=== PATIENT | female | born 1955 | race Caucasian/White ===

== ENCOUNTER 2023-07-14 07:07 | Inpatient (IN) | payer MEDICARE, MEDICAID ==
[~2023-07-14] VITALS: Ht 162.6 cm; Wt 102.0 kg
--- NOTE | 2023-07-14 07:29 | NUR ---
2 year remission from colon cancer, uti last month but never took medication,self medicating with cranberry juice.
--- NOTE | 2023-07-14 08:57 | NUR ---
This RN attempted PIV start on patient, patient moving multiple times after IV was placed and moved arm after this RN re-directed multiple times.
[2023-07-14 09:00] LABS: EOSINOPHILS % (AUTO) 0 % (0-6); HEMATOCRIT 39.2 % (35.0-45.0); LYMPHOCYTES # (AUTO) 0.2 X10'3 (1.1-4.8); RED CELL DISTRIBUTION WIDTH 13.9 % (11.5-14.5)
[2023-07-14 09:02] LABS: BASOPHILS % (AUTO) 0.1 % (0-1); HEMOGLOBIN 12.9 g/dl (12.0-16.0); LYMPHOCYTES % (AUTO) 2.7 % (21-51); MEAN CORPUSCULAR HEMOGLOBIN 29.6 PG (27.0-31.0); MEAN CORPUSCULAR VOLUME 89.7 FL (78-98); MEAN PLATELET VOLUME 8.3 FL (7.4-10.4); MONOCYTES # (AUTO) 0.4 X10'3 (0-0.9); MONOCYTES % (AUTO) 6.8 % (2-12); NEUTROPHILS # (AUTO) 5.8 X10'3 (1.8-7.7); NEUTROPHILS % (AUTO) 90.4 % (42-75); PLATELET COUNT 128 X10'3 (140-440); RED BLOOD COUNT 4.37 X10'6 (4.20-5.60); WHITE BLOOD COUNT 6.4 X10'3 (4.5-11.0)
[2023-07-14 09:15] LABS: ALANINE AMINOTRANSFERASE 27 U/L (12-78); ALBUMIN 3.2 G/DL (3.4-5.0); ALBUMIN/GLOBULIN RATIO 0.8 (1.1-1.5); ALKALINE PHOSPHATASE 70 IU/L (46-116); ANION GAP 11 (8-16); ASPARTATE AMINO TRANSFERASE 39 U/L (10-37); BILIRUBIN,TOTAL 0.9 MG/DL (0.1-1.0); BLOOD UREA NITROGEN 18 MG/DL (7-18); BUN/CREATININE RATIO 12.5 (10.0-20.0); CALCIUM 8.9 MG/DL (8.5-10.1); CHLORIDE 97 MMOL/L (99-107); CREATININE 1.44 MG/DL (0.40-0.90); GLUCOSE 130 MG/DL (70-104); SODIUM 131 MMOL/L (135-145); TOTAL CARBON DIOXIDE 22.8 MMOL/L (24-32); TOTAL PROTEIN 7.1 G/DL (6.4-8.2); eCRCL 33 ML/MIN; eGFR 36 ML/MIN
--- NOTE | 2023-07-14 09:17 | NUR ---
critical lab potassium 3.0 Dr. Moore notified
[2023-07-14] MEDS ORDERED: potassium Cl 20 mEq SR tablet PO STA (09:21)
[2023-07-14] MEDS ORDERED: normal saline 1000ML IV soln IVB ONE ×2 (09:35→09:45)
[2023-07-14] MEDS ORDERED: piperacillin/tazo 3.375gm/50ml 50 ML IV ONE (09:35)
[2023-07-14] MEDS ORDERED: acetaminophen 1,000mg/100ml IV 100 ML IV STA (09:41)
[2023-07-14 09:42] LABS: TOTAL CELLS COUNTED 100
[2023-07-14 09:43] LABS: PLATELET ESTIMATE DECREASED
[2023-07-14] MEDS ORDERED: vancomycin 1,750 MG in NS 350ml IV soln IV ONE (10:00)
[2023-07-14 10:16] LABS: BILIRUBIN,URINE NEGATIVE (Neg); CLARITY,URINE CLOUDY (Clear); COLOR,URINE YELLOW (Yellow); GLUCOSE, URINE NEGATIVE (Neg); KETONES,URINE NEGATIVE (Neg); LEUKOCYTE ESTERASE ,URINE SMALL (Neg); NITRITES, URINE NEGATIVE (Neg); OCCULT BLOOD,URINE LARGE (Neg); PROTEIN,URINE >=300 mg/dl (Neg); UROBILINOGEN,URINE 0.2 E.U/dL (0.2-1.0)
[2023-07-14] MEDS ORDERED: magnesium 2GM in 50ml NS 50 ML IV ONE (10:20)
[2023-07-14] MEDS ORDERED: potassium Cl 40MEQ/1/2NS 520ml 520 ML IV ONE (10:20)
[2023-07-14 10:23] LABS: UA COLLECTION TYPE STRAIGHT CATH
[2023-07-14 10:24] LABS: RBC,URINE 50-100 /HPF (0-2); WBC,URINE TNTC /HPF (0-4)
[2023-07-14 10:25] LABS: BACTERIA,URINE 4+ /HPF (Neg); MUCUS STRANDS FEW /LPF (Neg); SQUAMOUS EPITHELIAL CELL,UR FEW /LPF (FEW)
[2023-07-14 10:54] LABS: MAGNESIUM 1.5 MG/DL (1.5-2.4)
[2023-07-14] MEDS ORDERED: magnesium 2GM in 50ml NS 50 ML IV PRN (12:15)
[2023-07-14] MEDS ORDERED: morphine 2 MG/ML inj. syringe IV PRN ×2 (12:15)
[2023-07-14] MEDS ORDERED: potassium Cl 20 mEq SR tablet PO PRN ×2 (12:15)
[2023-07-14] MEDS ORDERED: magnesium 4gm in 100ml NS 100 ML IV PRN (12:15)
[2023-07-14] MEDS ORDERED: potassium Cl 40MEQ/1/2NS 520ml 520 ML IV PRN (12:15)
[2023-07-14] MEDS ORDERED: acetaminophen 325mg tablet PO PRN (12:15)
[2023-07-14] MEDS ORDERED: HYDROcodone/acetaminophen 5mg/325mg tablet PO PRN (12:15)
[2023-07-14] MEDS ORDERED: magnesium Cl slow-release 64mg tablet PO PRN (12:15)
[2023-07-14] MEDS: normal saline 1000ml 1,000 ML IV SCH ×2 (12:40→22:15)
[2023-07-14] MEDS ORDERED: IBUP-1985 PO (13:10)
[2023-07-14] MEDS ORDERED: LISI40TA13 PO (13:10)
[2023-07-14] MEDS ORDERED: OMEP20CA16 PO (13:10)
[2023-07-14] MEDS ORDERED: LEVO25TA7 PO (13:11)
[2023-07-14] MEDS ORDERED: DULO60CA65 PO (13:11)
[2023-07-14] MEDS ORDERED: METO25TA6 PO (13:11)
[2023-07-14] MEDS ORDERED: ATOR20TA66 PO (13:12)
[2023-07-14] MEDS ORDERED: GABA600T13 PO (13:12)
[2023-07-14] MEDS: piperacillin/tazo 3.375gm/50ml 50 ML IV SCH (16:00)
[2023-07-14] MEDS ORDERED: lisinopril 10 MG tablet PO ONE (16:55)
[2023-07-14 17:42] VITALS: BP 136/90; PULSE 122; RESP 22; TEMP 99.3; O2SAT 97
--- NOTE | 2023-07-14 17:48 | NUR ---
Received patient to room 3008 via gurney accompanied by x1 staff. Patient one belongings bag placed in closet. Patient A&O in no apparent acute distress. Patient does c/o being weak. Received from report from Ed PUENTES patient was found sitting on ground in ER room "with poop all over and she didn't hit her head or anything." No apparent injuries noted on skin assessment. Patient oriented to room and call light. Call light placed within patient's reach. Bed low and locked, non skid socks on.
[2023-07-14 17:51] VITALS: RESP 22; O2SAT 97
[2023-07-14 18:00] VITALS: BP 113/61; PULSE 102; RESP 16; TEMP 99.6; O2SAT 97
--- NOTE | 2023-07-14 18:00 | NUR ---
Patient in room PCU 3008. I have received report from Beronica PUENTES and had the opportunity to ask questions and assume patient care.
--- NOTE | 2023-07-14 18:14 | NUR ---
Problems reprioritized. Patient report given, questions answered & plan of care reviewed with DHAVAL Finley.
[2023-07-14] MEDS ORDERED: metoprolol tartrate 25mg tablet PO ONE (18:20)
--- NOTE | 2023-07-14 18:29 | NUR ---
Problems reprioritized. Patient report given, questions answered & plan of care reviewed with Kassidy Finley.
[2023-07-14 20:00] VITALS: RESP 16; O2SAT 98
[2023-07-14] MEDS: heparin, porcine 5000 units/ml vial SQ SCH (21:04)
[2023-07-14] MEDS: atorvastatin 20mg tablet PO SCH (21:05)
[2023-07-14] MEDS: HYDROcodone/acetaminophen 10/325mg tab PO PRN (21:05)
[2023-07-14] MEDS: temazepam 15mg capsule PO PRN (21:05)
[2023-07-14] MEDS: ondansetron/PF 4mg/2ml inj IV PRN (21:54)
[2023-07-14 22:00] VITALS: BP 128/65; PULSE 88; RESP 17; TEMP 98.7; O2SAT 98
--- NOTE | 2023-07-14 23:14 | NUR ---
PAGED DR. RICHARDSON FOR PAUL MATA BLOOD CULTURE POSITIVE FOR GRAM NEG RODS FOR BOTH RT & LT ARM. THANK YOU [facility] [phone]
[2023-07-15] VITALS (7 sets, daily range): BP systolic 123–153; BP diastolic 67–85; PULSE 72–89; RESP 9–20; TEMP 97.7–99.9; O2SAT 92–98
[2023-07-15] MEDS: piperacillin/tazo 3.375gm/50ml 50 ML IV SCH ×3 (01:06→17:25)
[2023-07-15] MEDS ORDERED: mag hydrox/Alum hydrox/simeth 30ml oral suspension PO ONE ×2 (04:05→04:10)
--- NOTE | 2023-07-15 06:41 | NUR ---
Patient in room PCU 3008. I have received report from Malia PUENTES and had the opportunity to ask questions and assume patient care.
[2023-07-15 07:26] LABS: ALANINE AMINOTRANSFERASE 25 U/L (12-78); ALBUMIN 2.4 G/DL (3.4-5.0); ALBUMIN/GLOBULIN RATIO 0.6 (1.1-1.5); ALKALINE PHOSPHATASE 51 IU/L (46-116); ANION GAP 9 (8-16); ASPARTATE AMINO TRANSFERASE 47 U/L (10-37); BILIRUBIN,TOTAL 0.7 MG/DL (0.1-1.0); BLOOD UREA NITROGEN 25 MG/DL (7-18); BUN/CREATININE RATIO 16.2 (10.0-20.0); CALCIUM 8.3 MG/DL (8.5-10.1); CHLORIDE 104 MMOL/L (99-107); CREATININE 1.54 MG/DL (0.40-0.90); GLUCOSE 98 MG/DL (70-104); POTASSIUM 4.4 MMOL/L (3.5-5.1); SODIUM 134 MMOL/L (135-145); TOTAL CARBON DIOXIDE 20.9 MMOL/L (24-32); TOTAL PROTEIN 6.2 G/DL (6.4-8.2); eCRCL 31 ML/MIN; eGFR 34 ML/MIN
[2023-07-15] MEDS: levoTHYROXINE 25mcg tablet PO SCH (08:02)
[2023-07-15] MEDS: lisinopril 20mg tablet PO SCH (08:02)
[2023-07-15] MEDS: metoprolol tartrate 25mg tablet PO SCH (08:02)
[2023-07-15] MEDS: duloxetine 30mg CAPSULE.DR PO SCH (08:02)
[2023-07-15] MEDS: heparin, porcine 5000 units/ml vial SQ SCH ×2 (08:04→20:00)
[2023-07-15] MEDS: normal saline 1000ml 1,000 ML IV SCH ×2 (08:15→17:25)
[2023-07-15] MEDS: ondansetron/PF 4mg/2ml inj IV PRN ×2 (08:28→15:20)
[2023-07-15] MEDS: HYDROcodone/acetaminophen 10/325mg tab PO PRN (08:28)
[2023-07-15 10:05] LABS: BASOPHILS % (AUTO) 0.1 % (0-1); EOSINOPHILS # (AUTO) 0.2 X10'3 (0-0.9); EOSINOPHILS % (AUTO) 3.6 % (0-6); HEMATOCRIT 34.6 % (35.0-45.0); HEMOGLOBIN 11.2 g/dl (12.0-16.0); LYMPHOCYTES # (AUTO) 0.2 X10'3 (1.1-4.8); LYMPHOCYTES % (AUTO) 4.7 % (21-51); MEAN CORPUSCULAR HEMOGLOBIN 29.3 PG (27.0-31.0); MEAN CORPUSCULAR HGB CONC 32.3 g/dL (33.0-36.5); MEAN CORPUSCULAR VOLUME 90.5 FL (78-98); MEAN PLATELET VOLUME 9.2 FL (7.4-10.4); MONOCYTES # (AUTO) 0.1 X10'3 (0-0.9); MONOCYTES % (AUTO) 2.6 % (2-12); NEUTROPHILS # (AUTO) 4.5 X10'3 (1.8-7.7); PLATELET COUNT 72 X10'3 (140-440); RED BLOOD COUNT 3.82 X10'6 (4.20-5.60); RED CELL DISTRIBUTION WIDTH 14.5 % (11.5-14.5); WHITE BLOOD COUNT 5.1 X10'3 (4.5-11.0)
[2023-07-15 10:37] LABS: TOTAL CELLS COUNTED 100
[2023-07-15 10:38] LABS: BURR CELLS FEW; ELLIPTOCYTES FEW; PLATELET ESTIMATE DECREASED; TEAR DROP CELLS FEW; TOXIC GRANULATION 1+; TOXIC VACUOLATION FEW
[2023-07-15 11:38] LABS: BASOPHILS % (AUTO) 0.1 % (0-1); EOSINOPHILS # (AUTO) 0.1 X10'3 (0-0.9); HEMATOCRIT 33.5 % (35.0-45.0); LYMPHOCYTES # (AUTO) 0.2 X10'3 (1.1-4.8); LYMPHOCYTES % (AUTO) 4.3 % (21-51); MEAN CORPUSCULAR HEMOGLOBIN 29.5 PG (27.0-31.0); MEAN CORPUSCULAR HGB CONC 32.7 g/dL (33.0-36.5); MEAN CORPUSCULAR VOLUME 90.1 FL (78-98); MEAN PLATELET VOLUME 8.9 FL (7.4-10.4); MONOCYTES # (AUTO) 0.2 X10'3 (0-0.9); NEUTROPHILS # (AUTO) 4.7 X10'3 (1.8-7.7); NEUTROPHILS % (AUTO) 90.6 % (42-75); PLATELET COUNT 75 X10'3 (140-440); RED BLOOD COUNT 3.72 X10'6 (4.20-5.60); RED CELL DISTRIBUTION WIDTH 14.6 % (11.5-14.5); WHITE BLOOD COUNT 5.2 X10'3 (4.5-11.0)
[2023-07-15] MEDS ORDERED: pantoprazole 40mg Tablet.DR PO ONE (15:00)
[2023-07-15] MEDS: acetaminophen 325mg tablet PO PRN (15:20)
[2023-07-15] MEDS ORDERED: furosemide 40mg/4ml inj IV ONE (18:25)
--- NOTE | 2023-07-15 18:30 | NUR ---
Patient in room PCU 3008. I have received report from DHAVAL Ruiz and had the opportunity to ask questions and assume patient care.
--- NOTE | 2023-07-15 18:45 | NUR ---
patient medicated z2 for headache and nausea with mod effect. Incont of stool due to "chemo bowel" from rectal cancer. Stable at this time report given to Eboni PUENTES
[2023-07-15] MEDS: temazepam 15mg capsule PO PRN (20:12)
[2023-07-15] MEDS: atorvastatin 20mg tablet PO SCH ×2 (20:12→20:25)
[2023-07-15] MEDS: gabapentin 300mg capsule PO SCH (20:13)
[2023-07-16] VITALS (8 sets, daily range): BP systolic 126–146; BP diastolic 70–74; PULSE 68–88; RESP 16–20; TEMP 97.7–100.1; O2SAT 91–100
[2023-07-16] MEDS: piperacillin/tazo 3.375gm/50ml 50 ML IV SCH ×3 (00:14→17:32)
[2023-07-16] MEDS: normal saline 1000ml 1,000 ML IV SCH ×2 (04:39→14:15)
[2023-07-16] MEDS: acetaminophen 325mg tablet PO PRN (04:42)
--- NOTE | 2023-07-16 06:00 | NUR ---
Patient in room PCU 3008. I have received report from Eboni PUENTES and had the opportunity to ask questions and assume patient care.
--- NOTE | 2023-07-16 06:00 | NUR ---
Patient in room U 3008. I have received report from Quinton and had the opportunity to ask questions and assume patient care. Addendum: 07/17/23 at 0034 by Brigida Booker LVN, LVN Report received at 1800
[2023-07-16 06:49] LABS: BASOPHILS % (AUTO) 0.1 % (0-1); HEMOGLOBIN 11.1 g/dl (12.0-16.0); LYMPHOCYTES # (AUTO) 0.2 X10'3 (1.1-4.8); MEAN PLATELET VOLUME 9.4 FL (7.4-10.4); MONOCYTES # (AUTO) 0.1 X10'3 (0-0.9); NEUTROPHILS # (AUTO) 2.6 X10'3 (1.8-7.7)
[2023-07-16 06:51] LABS: EOSINOPHILS % (AUTO) 1.3 % (0-6); LYMPHOCYTES % (AUTO) 6.3 % (21-51); MEAN CORPUSCULAR HEMOGLOBIN 29.7 PG (27.0-31.0); MEAN CORPUSCULAR HGB CONC 32.7 g/dL (33.0-36.5); MEAN CORPUSCULAR VOLUME 90.7 FL (78-98); NEUTROPHILS % (AUTO) 87.3 % (42-75); PLATELET COUNT 70 X10'3 (140-440); RED BLOOD COUNT 3.75 X10'6 (4.20-5.60); RED CELL DISTRIBUTION WIDTH 14.9 % (11.5-14.5)
[2023-07-16 06:57] LABS: ALANINE AMINOTRANSFERASE 27 U/L (12-78); ALBUMIN 2.3 G/DL (3.4-5.0); ALBUMIN/GLOBULIN RATIO 0.5 (1.1-1.5); ALKALINE PHOSPHATASE 61 IU/L (46-116); ANION GAP 8 (8-16); ASPARTATE AMINO TRANSFERASE 44 U/L (10-37); BILIRUBIN,TOTAL 0.6 MG/DL (0.1-1.0); BLOOD UREA NITROGEN 27 MG/DL (7-18); CALCIUM 8.6 MG/DL (8.5-10.1); CHLORIDE 103 MMOL/L (99-107); GLUCOSE 63 MG/DL (70-104); SODIUM 132 MMOL/L (135-145); TOTAL CARBON DIOXIDE 20.9 MMOL/L (24-32); TOTAL PROTEIN 6.6 G/DL (6.4-8.2); eCRCL 31 ML/MIN; eGFR 35 ML/MIN
[2023-07-16 07:32] LABS: TOTAL CELLS COUNTED 100
[2023-07-16 07:33] LABS: PLATELET ESTIMATE DECREASED
[2023-07-16 07:34] LABS: TOXIC GRANULATION 1+; TOXIC VACUOLATION FEW
[2023-07-16] MEDS: heparin, porcine 5000 units/ml vial SQ SCH ×2 (08:00→20:00)
[2023-07-16] MEDS: pantoprazole 40mg Tablet.DR PO SCH (08:40)
[2023-07-16] MEDS: duloxetine 30mg CAPSULE.DR PO SCH (08:40)
[2023-07-16] MEDS: gabapentin 300mg capsule PO SCH ×2 (08:40→20:48)
[2023-07-16] MEDS: levoTHYROXINE 25mcg tablet PO SCH (08:40)
[2023-07-16] MEDS: metoprolol tartrate 25mg tablet PO SCH (08:42)
[2023-07-16] MEDS: lisinopril 20mg tablet PO SCH (08:42)
--- NOTE | 2023-07-16 09:48 | NUR ---
Patient dtr called and wanted an update on patient. Patient verbally gave me the okay to talk to her dtr. I was able to help dtr with all her questions. She requests an update after the doctors round. Paty [phone]
--- NOTE | 2023-07-16 10:00 | NUR ---
Problems reprioritized. Patient report given, questions answered & plan of care reviewed with Quinton PUENTES.
--- NOTE | 2023-07-16 13:49 | NUR ---
Page Accepted promotional table spacer Message[id number] PATIENT HR IN 130S FOR LAST 20 MIN AND HIS LATEST BP IS 175/125. PATIENT IS ON CARDIZEM GTT @ 5. CIERRA @54 Custom Responses: promotional table spacer Transaction number: [id number] Addendum: 07/16/23 at 1350 by Cierra Thomas RN DR IVERSON CALLED BACK AND GAVE ME AND ORDER TO INCREASE CARDIZEM GTT TO 10. IT IS CURRENTLY RUNNING AT 5
[2023-07-16 14:44] LABS: THYROID STIMULATING HORMONE 2.75 ulU/ml (0.34-4.50)
[2023-07-16] MEDS: atorvastatin 20mg tablet PO SCH (20:48)
[2023-07-17] MEDS: piperacillin/tazo 3.375gm/50ml 50 ML IV SCH ×2 (00:06→07:48)
[2023-07-17] MEDS: normal saline 1000ml 1,000 ML IV SCH ×2 (00:15→05:05)
--- NOTE | 2023-07-17 06:27 | NUR ---
Problems reprioritized. Patient report given, questions answered & plan of care reviewed with
--- NOTE | 2023-07-17 06:47 | NUR ---
I AGREE WITH PIECE DYE WORKER'S ASSESSMENT
[2023-07-17 07:00] VITALS: BP 141/76; PULSE 80; RESP 16; TEMP 98.2; O2SAT 100
[2023-07-17] MEDS: lisinopril 20mg tablet PO SCH (07:46)
[2023-07-17] MEDS: pantoprazole 40mg Tablet.DR PO SCH (07:46)
[2023-07-17] MEDS: heparin, porcine 5000 units/ml vial SQ SCH (07:47)
[2023-07-17] MEDS: duloxetine 30mg CAPSULE.DR PO SCH (07:47)
[2023-07-17] MEDS: gabapentin 300mg capsule PO SCH (07:47)
[2023-07-17] MEDS: levoTHYROXINE 25mcg tablet PO SCH (07:47)
[2023-07-17] MEDS: metoprolol tartrate 25mg tablet PO SCH (07:48)
[2023-07-17 08:00] VITALS: RESP 18; O2SAT 99
[2023-07-17 08:07] LABS: BASOPHILS % (AUTO) 0.3 % (0-1); EOSINOPHILS % (AUTO) 0.5 % (0-6); HEMATOCRIT 35.8 % (35.0-45.0); HEMOGLOBIN 11.6 g/dl (12.0-16.0); LYMPHOCYTES # (AUTO) 0.3 X10'3 (1.1-4.8); LYMPHOCYTES % (AUTO) 7.4 % (21-51); MEAN CORPUSCULAR HEMOGLOBIN 29.7 PG (27.0-31.0); MEAN CORPUSCULAR HGB CONC 32.4 g/dL (33.0-36.5); MEAN CORPUSCULAR VOLUME 91.7 FL (78-98); MEAN PLATELET VOLUME 9.1 FL (7.4-10.4); MONOCYTES # (AUTO) 0.3 X10'3 (0-0.9); MONOCYTES % (AUTO) 8.3 % (2-12); NEUTROPHILS # (AUTO) 2.9 X10'3 (1.8-7.7); NEUTROPHILS % (AUTO) 83.5 % (42-75); PLATELET COUNT 67 X10'3 (140-440); RED CELL DISTRIBUTION WIDTH 15.3 % (11.5-14.5); WHITE BLOOD COUNT 3.5 X10'3 (4.5-11.0)
[2023-07-17 08:40] LABS: ALANINE AMINOTRANSFERASE 27 U/L (12-78); ALBUMIN 2.1 G/DL (3.4-5.0); ALBUMIN/GLOBULIN RATIO 0.5 (1.1-1.5); ALKALINE PHOSPHATASE 66 IU/L (46-116); ANION GAP 10 (8-16); ASPARTATE AMINO TRANSFERASE 33 U/L (10-37); BILIRUBIN,TOTAL 0.8 MG/DL (0.1-1.0); BLOOD UREA NITROGEN 25 MG/DL (7-18); BUN/CREATININE RATIO 18.5 (10.0-20.0); CALCIUM 8.7 MG/DL (8.5-10.1); CHLORIDE 103 MMOL/L (99-107); CREATININE 1.35 MG/DL (0.40-0.90); GLUCOSE 76 MG/DL (70-104); POTASSIUM 4.1 MMOL/L (3.5-5.1); SODIUM 133 MMOL/L (135-145); TOTAL CARBON DIOXIDE 19.6 MMOL/L (24-32); TOTAL PROTEIN 6.2 G/DL (6.4-8.2); eCRCL 35 ML/MIN; eGFR 39 ML/MIN
[2023-07-17] MEDS ORDERED: CIPR-259 PO (10:53)
[2023-07-17 11:00] VITALS: BP 134/70; PULSE 77; RESP 16; TEMP 98.3; O2SAT 100
== END 2023-07-17 15:40 | disposition home or self-care (01) | DRG 871 ==
LOC: ER 07:09 → ED HOLD 12:19 → PCU 3S 17:02
PROVIDERS: ADMIT Internal Medicine; ATTEND Internal Medicine
DX: A41.9 Sepsis, unspecified organism (principal); I21.A1 Myocardial infarction type 2; N17.0 Acute kidney failure with tubular necrosis; N39.0 Urinary tract infection, site not specified; E87.6 Hypokalemia; I08.0 Rheumatic disorders of both mitral and aortic valves; R79.89 Other specified abnormal findings of blood chemistry; B96.20 Unspecified Escherichia coli [E. coli] as the cause of diseases classified elsewhere; E03.9 Hypothyroidism, unspecified; Z20.822 Contact with and (suspected) exposure to COVID-19; I10 Essential (primary) hypertension; Z85.038 Personal history of other malignant neoplasm of large intestine; Z87.440 Personal history of urinary (tract) infections; Z79.899 Other long term (current) drug therapy; Z85.048 Personal history of other malignant neoplasm of rectum, rectosigmoid junction, and anus; Z92.3 Personal history of irradiation; Z82.49 Family history of ischemic heart disease and other diseases of the circulatory system; Z80.0 Family history of malignant neoplasm of digestive organs
CPT/HCPCS: 36415; 71045; 80053; 81001; 83605; 83735; 84132; 84145; 84443; 84484; 85007; 85025; 87040; 87077; 87081; 87088; 87186; 87811; 93306; 99285; A4353; A4615; G0378; J0131; J1644; J2405; J2543; J3370; J3475; J3480; J7030; J7040

== ENCOUNTER 2023-09-15 10:16 | Day surgery (SDC) | payer MEDICARE, MEDICAID ==
[2023-09-07 15:22] LABS: BASOPHILS % (AUTO) 0.7 % (0-1); EOSINOPHILS # (AUTO) 0.1 X10'3 (0-0.9); HEMATOCRIT 34.3 % (35.0-45.0); HEMOGLOBIN 11.3 g/dl (12.0-16.0); LYMPHOCYTES # (AUTO) 1.1 X10'3 (1.1-4.8); LYMPHOCYTES % (AUTO) 22.2 % (21-51); MEAN CORPUSCULAR HGB CONC 32.9 g/dL (33.0-36.5); MEAN CORPUSCULAR VOLUME 88.2 FL (78-98); MEAN PLATELET VOLUME 8.2 FL (7.4-10.4); MONOCYTES # (AUTO) 0.4 X10'3 (0-0.9); MONOCYTES % (AUTO) 7.5 % (2-12); NEUTROPHILS # (AUTO) 3.3 X10'3 (1.8-7.7); NEUTROPHILS % (AUTO) 67.6 % (42-75); PLATELET COUNT 261 X10'3 (140-440); RED BLOOD COUNT 3.88 X10'6 (4.20-5.60); RED CELL DISTRIBUTION WIDTH 15.5 % (11.5-14.5); WHITE BLOOD COUNT 4.8 X10'3 (4.5-11.0)
[2023-09-07 15:37] LABS: APTT 26 SECONDS (22-32); PROTHROMBIN TIME 10.3 SECONDS (9.0-12.0)
[2023-09-07 15:42] LABS: ALBUMIN 3.6 G/DL (3.4-5.0); ANION GAP 11 (8-16); BLOOD UREA NITROGEN 21 MG/DL (7-18); BUN/CREATININE RATIO 16.7 (10.0-20.0); CALCIUM 9.5 MG/DL (8.5-10.1); CHLORIDE 104 MMOL/L (99-107); CHOL/HDL RATIO 3.9 (0.00-4.99); CHOLESTEROL 204 MG/DL (0-200); CREATININE 1.26 MG/DL (0.40-0.90); GLUCOSE 97 MG/DL (70-104); HDL CHOLESTEROL 52 MG/DL (35-60); LDL CHOLESTEROL 108 MG/DL (50-100); SODIUM 141 MMOL/L (135-145); TOTAL CARBON DIOXIDE 26.3 MMOL/L (24-32); TRIGLYCERIDES 184 MG/DL (20-135); eGFR 42 ML/MIN
[~2023-09-15] VITALS: Ht 162.6 cm; Wt 100.6 kg
[2023-09-15] VITALS (10 sets, daily range): BP systolic 123–157; BP diastolic 44–92; PULSE 74–92; RESP 12–18; TEMP 98.2; O2SAT 96–99
[~2023-09-15 10:16] MED LIST: ATOR20TA66 PO; DULO60CA65 PO; GABA600T13 PO; LEVO25TA7 PO; LISI40TA13 PO; METO25TA6 PO; OMEP20CA16 PO
[2023-09-15] MEDS ORDERED: diphenhydrAMINE 25mg capsule PO PRN (10:30)
[2023-09-15] MEDS ORDERED: LORazepam 0.5 MG tablet PO PRN (10:30)
[2023-09-15] MEDS ORDERED: normal saline 1,000 ML IV SCH (10:30)
[2023-09-15] MEDS ORDERED: LEVO50CA4 PO (10:49)
[2023-09-15] MEDS ORDERED: ATOR10TA70 PO (10:50)
[2023-09-15] MEDS ORDERED: heparin 1,000unit/ml 10ml vial 10 ML ONE (11:57)
[2023-09-15] MEDS ORDERED: LIDOcaine 1% (10mg/ml) 2ml vial ONE (11:57)
[2023-09-15] MEDS ORDERED: verapamil 2.5 mg/ml inj IV ONE (11:57)
[2023-09-15] MEDS ORDERED: midazolam 1 mg/ML 2ml injection ONE ×3 (11:57→14:06)
[2023-09-15] MEDS ORDERED: iohexol 350MG/ML 100ml bottle IV ONE (11:57)
[2023-09-15] MEDS ORDERED: fentaNYL/PF 50MCG/1 ML 2ML syringe ONE (11:57)
[2023-09-15] MEDS ORDERED: nitroGLYCERIN 500mcg/5mL D5W 5 ML IV ONE (12:02)
[2023-09-15 14:01] LABS: ISTAT HGB ART 9.2 g/dl (12.0-16.0); ISTAT Hct ART 27 %PCV (35-45); ISTAT O2 SATURATION ARTERIAL 87 % (95-98); ISTAT SOURCE ART
[2023-09-15] MEDS ORDERED: hydrALAZINE 20mg/ml inj. IV ONE (14:06)
[2023-09-15] MEDS ORDERED: HYDROcodone/acetaminophen 5mg/325mg tablet PO PRN (14:50)
[2023-09-15] MEDS ORDERED: HYDROcodone/acetaminophen 10/325mg tab PO PRN (14:50)
[2023-09-16 06:43] LABS: ISTAT HGB MIX 9.5 g/dl (12.0-16.0); ISTAT Hct MIX 28 %PCV (35-45); ISTAT O2 SATURATION MIX VENOUS 60 % (60-80); ISTAT SOURCE VEN
== END 2023-09-15 16:55 | disposition home or self-care (01) ==
LOC: SSTAY O 10:16
PROVIDERS: ATTEND Student in an Organized Health Care Education/Training Program
DX: I35.0 Nonrheumatic aortic (valve) stenosis (principal); I10 Essential (primary) hypertension; E78.5 Hyperlipidemia, unspecified; K21.9 Gastro-esophageal reflux disease without esophagitis; E03.9 Hypothyroidism, unspecified; Z85.048 Personal history of other malignant neoplasm of rectum, rectosigmoid junction, and anus; Z79.899 Other long term (current) drug therapy; Z98.890 Other specified postprocedural states; Z79.01 Long term (current) use of anticoagulants
CPT/HCPCS: 36415; 76937; 80048; 80061; 82803; 85014; 85025; 85610; 85730; 93005; 93456; 99152; 99153; J0360; J1644; J2250; J3010; J3490; J7030; Q0163; Q9967; A6258; A6402; C1751; C1894

== ENCOUNTER 2024-02-01 12:49 | Outpatient (CLI) | payer MEDICARE, MEDICAID ==
[~2024-02-01 12:49] MED LIST changes: +ATOR10TA70 PO; -ATOR20TA66 PO; -LEVO25TA7 PO; +LEVO50CA4 PO
[2024-02-01 13:38] LABS: BASOPHILS % (AUTO) 0.6 % (0-1); EOSINOPHILS # (AUTO) 0.1 X10'3 (0-0.9); EOSINOPHILS % (AUTO) 1.2 % (0-6); HEMATOCRIT 33.7 % (35.0-45.0); HEMOGLOBIN 10.9 g/dl (12.0-16.0); LYMPHOCYTES % (AUTO) 18.1 % (21-51); MEAN CORPUSCULAR HEMOGLOBIN 27.2 PG (27.0-31.0); MEAN CORPUSCULAR HGB CONC 32.4 g/dL (33.0-36.5); MEAN PLATELET VOLUME 7.3 FL (7.4-10.4); MONOCYTES # (AUTO) 0.5 X10'3 (0-0.9); MONOCYTES % (AUTO) 9.1 % (2-12); NEUTROPHILS # (AUTO) 3.9 X10'3 (1.8-7.7); PLATELET COUNT 297 X10'3 (140-440); RED BLOOD COUNT 4.01 X10'6 (4.20-5.60); RED CELL DISTRIBUTION WIDTH 15.1 % (11.5-14.5); WHITE BLOOD COUNT 5.5 X10'3 (4.5-11.0)
[2024-02-01 13:54] LABS: APTT 26 SECONDS (22-32); PROTHROMBIN TIME 10.6 SECONDS (9.0-12.0)
[2024-02-01 14:00] LABS: ALANINE AMINOTRANSFERASE 16 U/L (12-78); ALBUMIN 3.6 G/DL (3.4-5.0); ALBUMIN/GLOBULIN RATIO 0.9 (1.1-1.5); ALKALINE PHOSPHATASE 104 IU/L (46-116); ANION GAP 7 (8-16); ASPARTATE AMINO TRANSFERASE 14 U/L (10-37); BILIRUBIN,TOTAL 0.4 MG/DL (0.1-1.0); BLOOD UREA NITROGEN 19 MG/DL (7-18); BUN/CREATININE RATIO 15.3 (10.0-20.0); CALCIUM 9.2 MG/DL (8.5-10.1); CHLORIDE 105 MMOL/L (99-107); CREATININE 1.24 MG/DL (0.40-0.90); GLUCOSE 102 MG/DL (70-104); POTASSIUM 4.1 MMOL/L (3.5-5.1); PRO BRAIN NATRIURETIC PEPTIDE 517 PG/ML (0-125); SODIUM 141 MMOL/L (135-145); TOTAL CARBON DIOXIDE 29.5 MMOL/L (24-32); TOTAL PROTEIN 7.7 G/DL (6.4-8.2); eGFR 43 ML/MIN
[2024-02-01] MEDS ORDERED: IODIXANOL 320 MG/ML INFUS..BTL 100ML IV ONE (14:22)
== END 2024-02-01 23:59 | disposition home or self-care (01) ==
LOC: RAD 12:49
PROVIDERS: ATTEND Internal Medicine Cardiovascular Disease
DX: N20.0 Calculus of kidney (principal); K44.9 Diaphragmatic hernia without obstruction or gangrene; I35.0 Nonrheumatic aortic (valve) stenosis; R06.02 Shortness of breath; I65.29 Occlusion and stenosis of unspecified carotid artery; M19.012 Primary osteoarthritis, left shoulder; M19.011 Primary osteoarthritis, right shoulder
CPT/HCPCS: 36415; 71046; 71275; 74174; 75572; 80053; 83880; 85025; 85610; 85730; J3490; Q9967

== ENCOUNTER 2024-05-03 12:45 | Day surgery (SDC) | payer MEDICARE, MEDICAID ==
[~2024-05-03 12:45] MED LIST changes: +AMLO5TAB PO; +DICY20TA17 PO; +FERR-119 PO; -GABA600T13 PO; -LISI40TA13 PO; +ONDA-243 PO
[2024-05-03] MEDS ORDERED: FLUMAZENIL 0.1 MG/ML IV ONE (13:57)
[2024-05-03] MEDS ORDERED: fentaNYL/PF 50MCG/1 ML 2ML syringe ONE (13:57)
[2024-05-03] MEDS ORDERED: midazolam 1 mg/ML 2ml injection ONE (13:57)
[2024-05-03 14:02] VITALS: BP 129/80; PULSE 66; RESP 16
[2024-05-03] MEDS ORDERED: propofol inj 20 ML IV ONE (14:02)
[2024-05-03 14:20] VITALS: BP 114/59; PULSE 67; RESP 16; O2SAT 91
[2024-05-03 14:30] VITALS: BP 120/60; PULSE 70; RESP 28; O2SAT 99
[2024-05-03 14:40] VITALS: BP 114/75; PULSE 68; RESP 20; O2SAT 94
[2024-05-03 14:50] VITALS: BP 102/73; PULSE 69; RESP 18; O2SAT 94
== END 2024-05-03 15:00 | disposition home or self-care (01) ==
LOC: GI LAB 12:45
PROVIDERS: ATTEND Internal Medicine Gastroenterology
DX: R11.2 Nausea with vomiting, unspecified (principal); K29.50 Unspecified chronic gastritis without bleeding; I10 Essential (primary) hypertension; E66.9 Obesity, unspecified; J44.9 Chronic obstructive pulmonary disease, unspecified; Z68.36 Body mass index [BMI] 36.0-36.9, adult
CPT/HCPCS: 43239; A4620; J2250; J2704; J3010; J3490; J7030; Z7512

== ENCOUNTER 2024-05-26 12:04 | Day surgery (SDC) | payer MEDICARE, MEDICAID ==
[~2024-05-26] VITALS: Ht 162.6 cm; Wt 220.0 kg
[2024-05-26] VITALS (8 sets, daily range): BP systolic 97–144; BP diastolic 56–70; PULSE 64–73; RESP 12–17; O2SAT 95–97
[~2024-05-26 12:04] MED LIST changes: +PANT-47 PO
[2024-05-26] MEDS ORDERED: propofol 10mg/ml 20ml vial IV ONE (12:30)
[2024-05-26] MEDS ORDERED: fentaNYL/PF 50MCG/1 ML 2ML syringe ONE (12:35)
[2024-05-26] MEDS ORDERED: midazolam 1 mg/ML 2ml injection ONE (12:53)
== END 2024-05-26 14:20 | disposition home or self-care (01) ==
LOC: GI LAB 12:04
PROVIDERS: ATTEND Internal Medicine Gastroenterology
DX: K92.1 Melena (principal); K52.9 Noninfective gastroenteritis and colitis, unspecified; I10 Essential (primary) hypertension; I25.10 Atherosclerotic heart disease of native coronary artery without angina pectoris; E11.9 Type 2 diabetes mellitus without complications; E66.9 Obesity, unspecified; Z68.45 Body mass index [BMI] 70 or greater, adult
CPT/HCPCS: 45380; A4620; J2250; J2704; J3010; J7030; Z7512; 88305